=== PATIENT | male | born 1985 | race Caucasian/White ===

== ENCOUNTER 2016-07-30 19:47 | Emergency (ER) | payer SELFPAY ==
[2016-07-30 19:54] VITALS: BP 131/86
== END 2016-07-30 21:43 | disposition home or self-care (01) ==
LOC: ED 19:47
DX: G44.209 Tension-type headache, unspecified, not intractable (principal); K21.9 Gastro-esophageal reflux disease without esophagitis; K59.00 Constipation, unspecified; F17.210 Nicotine dependence, cigarettes, uncomplicated